=== PATIENT | female | born 1970 | race Caucasian/White ===

== ENCOUNTER 2019-01-28 23:19 | Emergency (ER) | payer SELFPAY ==
[~2019-01-28] VITALS: Ht 162.6 cm; Wt 68.2 kg
[2019-01-29] MEDS ORDERED: DEXAMETHASONE 4MG/ML 1ML VIAL IV ONE
[2019-01-29] MEDS ORDERED: MORPHINE SULFATE 4 MG/ML CPJ (NOT FOR IM USE) IV ONE
[2019-01-29] MEDS ORDERED: ACETAMINOPHEN 325MG TABLET PO ONE
[2019-01-29 03:02] VITALS: BP 122/76
== END 2019-01-29 03:03 | disposition home or self-care (01) ==
LOC: ER 23:19
DX: M54.5 Low back pain (principal); Z59.0 Homelessness
CPT/HCPCS: 96374; 96375; 99283; J1100; J2270; Z7610